=== PATIENT | male | born 1970 | race Caucasian/White ===

== ENCOUNTER 2017-06-16 09:58 | Day surgery (SDC) | payer BC ==
[~2017-06-16 09:58] MED LIST: Buffered Lidocaine 0.9% SYRIN* 5 ML/SYR SYRINGE INTRADERM ONE; Famotidine IV* 10 MG/ML 2 ML (20 mg) IV ONE
[2017-06-16] MEDS ORDERED: Buffered Lidocaine 0.9% SYRIN* 5 ML/SYR SYRINGE ONE (10:34)
[2017-06-16] MEDS ORDERED: Famotidine IV* 10 MG/ML 2 ML (20 mg) ONE (10:34)
[2017-06-16] MEDS ORDERED: Oxymetazoline 0.05% NASAL SPR* 15 ML BTL ONE ×2 (10:52→12:06)
[2017-06-16] MEDS ORDERED: KETAMINE HCL* 50 MG/ML 10 ML VIAL ONE (11:54)
[2017-06-16] MEDS ORDERED: fentaNYL* 50 MCG/ML 2 ML VIAL (100 MCG VIAL) ONE ×2 (11:54→13:13)
[2017-06-16] MEDS ORDERED: Midazolam* 1 MG/ML 10 ML VIAL (10 MG) ONE (11:54)
[2017-06-16] MEDS ORDERED: Dexamethasone IV* 4 MG/ML 1 ML (4 MG) ONE (11:54)
[2017-06-16] MEDS ORDERED: Lidocaine 2% PF * 5 ML VIAL ONE (11:54)
[2017-06-16] MEDS ORDERED: Ondansetron INJ* 2 MG/ML VIAL ONE (11:54)
[2017-06-16] MEDS ORDERED: Propofol* 10 MG/ML 20 ML BTL IV PUSH ONE (11:54)
[2017-06-16] MEDS ORDERED: Ondansetron INJ* 2 MG/ML VIAL IV PRN (12:04)
[2017-06-16] MEDS ORDERED: fentaNYL* 50 MCG/ML 2 ML VIAL (100 MCG VIAL) IV PRN (12:04)
[2017-06-16] MEDS ORDERED: Naloxone* 0.4 MG/ML 1 ML VIAL IV PRN (12:04)
[2017-06-16] MEDS ORDERED: Lidocaine 4% TOPICAL* 50 ML TOP.SOLN ONE (12:06)
[2017-06-16] MEDS ORDERED: Lidocaine 1% MPF wEPI 200,000* 30 ML SDV ONE (12:06)
[2017-06-16] MEDS ORDERED: Silver Nitrate/Potassium Nitr* 1 EA STICK ONE (12:08)
[2017-06-16] MEDS ORDERED: Ketorolac INJ* 30 MG/ML 1 ML VIAL ONE (13:42)
[2017-06-16 14:30] VITALS: BP 142/89
--- NOTE | 2017-06-17 12:45 | OP ---
DATE OF OPERATION: 06/16/17 - [facility] DATE OF : 68 SURGEON: Bryce Pennington MD. RESEARCH AND EVALUATION MANAGER: None. ANESTHESIA: General. PRE-OP DIAGNOSES: Bilateral inferior turbinate hypertrophy and left-sided epistaxis. POST-OP DIAGNOSES: Bilateral inferior turbinate hypertrophy and left-sided epistaxis. OPERATIVE PROCEDURE: Bilateral outfracture and cautery of the inferior turbinates and cautery of left nasal cavity. ESTIMATED BLOOD LOSS: Negligible. FINDINGS: Bilateral inferior turbinate hypertrophy and prominent vascular plexus on the left anterior nasal septum. INDICATION: This is a 46-year-old male with symptomatic nasal airway obstruction with hypertrophied inferior turbinates. He has also had problems with chronic left-sided epistaxis. He has had prior cautery procedure performed in the distant past, but has started to have problems again. DESCRIPTION OF PROCEDURE: On 06/16/17 , the patient was brought to the operating room. General anesthesia was induced and an LMA was placed. The patient was draped and a time-out was performed. Pledgets soaked in Afrin and 4 % lidocaine were placed into both nasal cavities. Approximately 2 cc of 1% lidocaine with 1:200,000 epinephrine was infiltrated into each inferior turbinate and the procedure was begun. Initially, silver nitrate was brought into the field. The prominent vascular plexus on the left anterior septum was cauterized with silver nitrate. Both inferior turbinates were then infractured. Multiple passes were made through each turbinate along its full length utilizing the Elmed bipolar device at a setting of 4. Once the turbinates were both cauterized, they were then outfractured with a freer elevator. The patient was then returned to the care of the anesthesiologist. The LMA was removed and he was delivered to the PACU in stable condition. [id number]/[facility] #: [id number] MTDD
== END 2017-06-16 14:31 | disposition home or self-care (01) ==
LOC: OR 09:58
PROVIDERS: ATTEND Otolaryngology
DX: J34.3 Hypertrophy of nasal turbinates (principal); R04.0 Epistaxis; G47.33 Obstructive sleep apnea (adult) (pediatric); R09.81 Nasal congestion; E03.9 Hypothyroidism, unspecified; R00.1 Bradycardia, unspecified; F41.9 Anxiety disorder, unspecified; G47.9 Sleep disorder, unspecified
CPT/HCPCS: A9270-GY; J1100; J1885; J2001; J2250; J2405; J2704; J3010